=== PATIENT | female | born 1955 | race Caucasian/White ===

== ENCOUNTER 2016-05-31 10:17 | Observation (INO) | payer OTHER ==
[2016-05-31] VITALS (9 sets, daily range): BP systolic 142–163; BP diastolic 63–78; PULSE 66–84; RESP 18–20; TEMP 96.8–98.1; O2SAT 93–98
[~2016-05-31 10:17] MED LIST: ALBU6.7H INH; ASPI81TA82 PO; BENA25TA5 PO; DIPH2%T; DIPH2%T PO; DULE200A INH; EPIP0.3I IM; PRED50TA PO; RANI150 PO
[2016-05-31] MEDS ORDERED: DULE100A INH (12:56)
[2016-05-31 13:00] LABS: AUTOMATED NEUTROPHIL # 5.2 TH/MM3 (1.8-7.7); BASOPHIL # 0.1 TH/MM3 (0-0.2); BASOPHIL % 0.7 % (0.0-2.0); EOSINOPHIL # 0.1 TH/MM3 (0-0.4); HEMATOCRIT 38.6 % (35.0-46.0); HEMO FLAGS DIFF FINAL; LYMPH % 20.4 % (9.0-44.0); LYMPHOCYTE # 1.5 TH/MM3 (1.0-4.8); MEAN CELL VOLUME 85.1 FL (80.0-100.0); MEAN CORPUSCULAR HEMOGLOBIN 27.9 PG (27.0-34.0); MEAN CORPUSCULAR HGB CONC 32.8 % (32.0-36.0); MONO % 4.8 % (0.0-8.0); NEUT % 73.1 % (16.0-70.0); PLATELET COUNT 357 TH/MM3 (150-450); RED BLOOD COUNT 4.53 MIL/MM3 (4.00-5.30); RED CELL DISTRIBUTION WIDTH 14.5 % (11.6-17.2); WHITE BLOOD COUNT 7.3 TH/MM3 (4.0-11.0)
--- NOTE | 2016-05-31 13:01 | PD ---
HPI Chief Complaint: Chest Pain Time Seen by Provider: 10:17 Travel History International Travel<30 days: No Contact w/Intl Traveler<30days: No Traveled to known affect area: No History of Present Illness HPI Patient is a 61-year-old female who presents to emergency room with complaints of chest pain. Patient reports that she has been having increased chest pain for the past 2 weeks, reports that she has had chest pain in the past but does a lot of heavy lifting and thought that her chest pain was associated to a pulled muscle. Patient reports that she became concerned as her chest pain did not resolve after week, reports that she did go to urgent care center, she had an EKG performed there and was told to go to the emergency room as she had a concerning EKG. Patient reports that she did not follow-up and was not seen by a physician after she went to the urgent care center. Reports that she has been having increased chest pains over the past week and reports increased concerns from what the urgent care Center physician told her. Patient reports that she has been having increased pains under her right breast, reports that the pain is nonradiating in nature. Patient reports that the pain is intermittent in nature, reports that sometimes she has sharp stabbing pains, reports that sometimes she has pressure to her chest. Reports that when she has symptoms, they last a few minutes at a time and resolves on its own. Patient reports that she woke up this morning with chest pain, reports that it lasted for a few minutes and resolved shortly thereafter. Patient reports that nothing makes chest pain better, reports that sitting forward makes chest pain worse. Patient with no history of hypertension, hyperlipidemia, coronary disease. She reports a history of diabetes which she has been monitoring with a good diet. Unsure of family history as patient was adopted [facility] Past Medical History COPD: Yes Diabetes: Yes Patient Takes Glucophage: No Past Surgical History Other Surgery: Yes (ANKLE) Social History Alcohol Use: No Tobacco Use: No Substance Use: No Allergies-Medications (Allergen,Severity, Reaction): Coded Allergies: Enalapril (Verified Allergy, Unknown, 05/31/16) Guaifenesin (Verified Allergy, Unknown, 05/31/16) Metformin (Verified Allergy, Unknown, 05/31/16) Penicillin (Verified Allergy, Unknown, 05/31/16) Reported Meds & Prescriptions Reported Meds & Active Scripts Active Reported Dulera 120 Act Inh (Mometasone-Formoterol 120 Act Inh) 100-5 Mcg/Act Inh 2 Puff INH BID Review of Systems General / Constitutional: No: Fever Eyes: No: Visual changes HENT: No: Headaches Cardiovascular: Positive: Chest Pain or Discomfort Respiratory: No: Shortness of Breath Gastrointestinal: No: Abdominal Pain Genitourinary: No: Dysuria Musculoskeletal: No: Pain Skin: No Rash Neurologic: No: Weakness Psychiatric: No: Depression Endocrine: No: Polydipsia Hematologic/Lymphatic: No: Easy Bruising Physical Exam Narrative GENERAL: No acute distress, nontoxic SKIN: Warm and dry. HEAD: Atraumatic. Normocephalic. EYES: Pupils equal and round. No scleral icterus. No injection or drainage. ENT: No nasal bleeding or discharge. Mucous membranes pink and moist. NECK: Trachea midline. No JVD. CARDIOVASCULAR: Regular rate and rhythm. No murmur appreciated. RESPIRATORY: No accessory muscle use. Clear to auscultation. Breath sounds equal bilaterally. GASTROINTESTINAL: Abdomen soft, non-tender, nondistended. Hepatic and splenic margins not palpable. MUSCULOSKELETAL: No obvious deformities. No clubbing. No cyanosis. No edema. NEUROLOGICAL: Awake and alert. No obvious cranial nerve deficits. Motor grossly within normal limits. Normal speech. PSYCHIATRIC: Appropriate mood and affect; insight and judgment normal. Data Data Last Documented VS Vital Signs Date Time Temp Pulse Resp B/P Pulse Ox O2 Delivery O2 Flow Rate FiO2 05/31/16 13:59 73 18 150/63 95 05/31/16 12:51 98.1 Orders Complete Blood Count With Diff (05/31/16 12:50) Comprehensive Metabolic Panel (05/31/16 12:50) Creatine Kinase (Cpk) (05/31/16 12:50) Troponin I (05/31/16 12:50) B-Type Natriuretic Peptide (05/31/16 12:50) Prothrombin Time / Inr (Pt) (05/31/16 12:50) Act Partial Throm Time (Ptt) (05/31/16 12:50) D-Dimer (05/31/16 12:50) Electrocardiogram (05/31/16 ) Chest, Single Ap (05/31/16 ) Iv Access Insert/Monitor (05/31/16 12:50) Potassium Chloride (Kcl) (05/31/16 14:00) Place In Observation (05/31/16 14:54) Vital Signs (Adult) Q4H (05/31/16 14:54) Cardiac Rhythm .As Directed (05/31/16:54) ^ Notify Dr: Other .PRN (05/31/16 14:54) ^ Notify Dr. Parameters (05/31/16 14:54) Resp Oxygen Nasal Cannula (05/31/16 ) Diet Heart Healthy (05/31/16 Dinner) Ckmb (Isoenzyme) Profile (05/31/16 14:54) Ckmb (Isoenzyme) Profile (05/31/16:54) Troponin I (05/31/16:54) Troponin I (05/31/16:54) Magnesium (Mg) (05/31/16:54) Electrocardiogram (05/31/16:54) Electrocardiogram (05/31/16:54) ^ Obtain (05/31/16:54) Sodium Chloride 0.9% Flush (Ns Flush) (05/31/16 15:00) Sodium Chloride 0.9% Flush (Ns Flush) (05/31/16 21:00) Acetaminophen (Tylenol) (05/31/16 15:00) Acetamin-Hydrocod 325-7.5 Mg ([place] 7.5 (05/31/16 15:00) Morphine Inj (Morphine Inj) (05/31/16 15:00) Ondansetron Inj (Zofran Inj) (05/31/16 15:00) Pantoprazole (Protonix) (05/31/16 21:00) Nitroglycerin Sl (Nitrostat Sl) (05/31/16 15:00) Aspirin (Aspirin) (05/31/16 15:00) Staff Nurse / Telemetry HEBER.Q8H (05/31/16 14:54) Scd Bilateral/Knee High HEBER.BID (05/31/16 14:54) Nathan Bilateral/Knee High HEBER.QSHIFT (05/31/16 14:54) Admit Order (Ed Use Only) (05/31/16 15:01) Aspirin Chew (Aspirin Chew) (05/31/16 15:00) Labs Laboratory Tests Test 3/11/17 3/11/17 11:15 15:05 White Blood Count 7.3 TH/MM3 Red Blood Count 4.53 MIL/MM3 Hemoglobin 12.7 GM/DL Hematocrit 38.6 % Mean Corpuscular Volume 85.1 FL Mean Corpuscular Hemoglobin 27.9 PG Mean Corpuscular Hemoglobin 32.8 % Concent Red Cell Distribution Width 14.5 % Platelet Count 357 TH/MM3 Mean Platelet Volume 7.4 FL Neutrophils (%) (Auto) 73.1 % Lymphocytes (%) (Auto) 20.4 % Monocytes (%) (Auto) 4.8 % Eosinophils (%) (Auto) 1.0 % Basophils (%) (Auto) 0.7 % Neutrophils # (Auto) 5.2 TH/MM3 Lymphocytes # (Auto) 1.5 TH/MM3 Monocytes # (Auto) 0.4 TH/MM3 Eosinophils # (Auto) 0.1 TH/MM3 Basophils # (Auto) 0.1 TH/MM3 CBC Comment DIFF FINAL Differential Comment Prothrombin Time 10.8 SEC Prothromb Time International 1.0 RATIO Ratio Activated Partial 27.2 SEC Thromboplast Time D-Dimer Quantitative (PE/DVT) 0.40 MG/L FEU Sodium Level 145 MEQ/L Potassium Level 3.3 MEQ/L Chloride Level 108 MEQ/L Carbon Dioxide Level 27.6 MEQ/L Anion Gap 9 MEQ/L Blood Urea Nitrogen 10 MG/DL Creatinine 0.49 MG/DL Estimat Glomerular Filtration 128 ML/MIN Rate Random Glucose 101 MG/DL Calcium Level 8.8 MG/DL Total Bilirubin 1.2 MG/DL Aspartate Amino Transf 12 U/L (AST/SGOT) Alanine Aminotransferase 25 U/L (ALT/SGPT) Alkaline Phosphatase 77 U/L Total Creatine Kinase 97 U/L 89 U/L Troponin I LESS THAN 0.02 LESS THAN 0.02 NG/ML NG/ML B-Type Natriuretic Peptide 37 PG/ML Total Protein 6.9 GM/DL Albumin 3.4 GM/DL [facility] Medical Decision Making Medical Screen Exam Complete: Yes Emergency Medical Condition: Yes Interpretation(s) EKG at 1050: NSR at 78bpm, qt/qtc: 376/407, st seg depression V4-V6, II, III, aVF EKG from 05/25/2016: NSR at 63bpm, qt/qtc: 418/423, st seg depression, II, III , aVF, V4-V6 (this ekg was from urgent care) Vital Signs Date Time Temp Pulse Resp B/P Pulse Ox O2 Delivery O2 Flow Rate FiO2 05/31/16 12:51 98.1 84 20 157/78 94 Differential Diagnosis ACS, arrhythmia, electrolyte abnormality, PE, pneumothorax Narrative Course Patient is a 61-year-old female with history of diabetes, presents to emergency room with complaints of intermittent chest pain for the past 2 weeks. Patient reports that she has been having sharp and stabbing pains as well as a pressure to her right chest which lasts about a few minutes at a time and resolves on its own. Patient reports that she was seen at urgent care 1 week ago and was told that she had a concerning EKG and was told to go the emergency room, patient reports that she did not go to emergency room at that time but came to the ER today as she continued to have pain. Patient reports that she tried to follow-up with primary care doctor but she was unable to find one to follow-up with. Patient here for further evaluation of her chest pain. Patient currently with no chest pain at this time. EKG obtained upon presentation to the emergency room. Patient was placed on a cardiac technologist. Labs as well as x-ray of the chest ordered. Will give patient a baby aspirin at this time. Patient currently chest pain-free at this time. I did review all labs and all studies with patient detail. Plan to obs for chest pain Chest x-ray with no acute disease case reviewed with Dr. Garcia who accepts pt to chest pain center Diagnosis Primary Impression: Chest pain Qualified Code: R07.9 - Chest pain, unspecified type Admitting Information Admitting Physician Requests: Berenice Domínguez DO May 31, 2016 13:01
[2016-05-31 13:04] LABS: CHLORIDE 108 MEQ/L (98-107); POTASSIUM 3.3 MEQ/L (3.5-5.1); SODIUM (NA) 145 MEQ/L (136-145)
[2016-05-31 13:08] LABS: ANION GAP 9 MEQ/L (5-15); BICARBONATE 27.6 MEQ/L (21.0-32.0); BLOOD UREA NITROGEN 10 MG/DL (7-18)
[2016-05-31 13:11] LABS: ALT (GPT) 25 U/L (10-53); AST (GOT) 12 U/L (15-37); GLOMERULAR FILTRATION RATE 128 ML/MIN (>89)
[2016-05-31 13:12] LABS: TOTAL BILIRUBIN ADULT 1.2 MG/DL (0.2-1.0)
[2016-05-31 13:14] LABS: ALKALINE PHOSPHATASE 77 U/L (45-117); APTT (PATIENT) 27.2 SEC (24.3-30.1); PROTHROMBIN TIME - PATIENT 10.8 SEC (9.8-11.6)
[2016-05-31 13:33] LABS: CREATINE KINASE 97 U/L (26-192)
[2016-05-31] MEDS ORDERED: POTASSIUM CHLORIDE 10 MEQ CONTROLLED RELEASE TAB PO ONE (14:00)
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
[2016-05-31] MEDS ORDERED: ASPIRIN 325 MG TAB PO SCH (15:00)
[2016-05-31] MEDS ORDERED: ACETAMINOPHEN/HYDROcodone 325 MG/7.5 MG TAB PO PRN (15:00)
[2016-05-31] MEDS ORDERED: ASPIRIN 81 MG CHEW TAB PO ONE (15:00)
[2016-05-31] MEDS ORDERED: MORPHINE SULFATE 4 MG/ML INJ IV PRN (15:00)
[2016-05-31] MEDS ORDERED: NITROGLYCERIN 0.4 MG SL 25 TABS/BTL SL PRN (15:00)
[2016-05-31] MEDS ORDERED: ONDANSETRON HCL 4 MG/2 ML VIAL IV PRN (15:00)
[2016-05-31] MEDS ORDERED: ACETAMINOPHEN 500 MG CPLT PO PRN (15:00)
[2016-05-31] MEDS ORDERED: SODIUM CHLORIDE 0.9% FLUSH 5 ML FLUSH IVF PRN (15:00)
[2016-05-31 15:56] LABS: CREATINE KINASE 89 U/L (26-192)
--- NOTE | 2016-05-31 18:15 | RADHPO ---
EXAM DATE/TIME: 05/31/2016 11:40 CORRECTION Corrected on: May 31, 2016; Corrected header [facility] COMPARISON: No previous studies available for comparison. INDICATIONS : Chest pain off and on for two weeks. MEDICAL HISTORY : Chronic obstructive pulmonary disease. SURGICAL HISTORY : None. ENCOUNTER: Initial ACUITY: 2 weeks PAIN SCORE: 10/10 LOCATION: Bilateral chest FINDINGS: A single view of the chest demonstrates the lungs to be symmetrically aerated without evidence of mas s, infiltrate or effusion. The cardiomediastinal contours are unremarkable. Osseous structures are intact. CONCLUSION: No acute disease. Claudio Torres MD on May 31, 2016 at 11:49 Board Certified Radiologist. Board Certified Radiologist. This report was verified electronically.
[2016-05-31 19:16] LABS: MAGNESIUM 2.1 MG/DL (1.5-2.5)
[2016-05-31 19:25] LABS: CREATINE KINASE 77 U/L (26-192)
[2016-05-31] MEDS ORDERED: PANTOPRAZOLE SOD 40 MG DELAYED RELEASE TAB PO SCH (21:00)
[2016-05-31] MEDS: MOMETASONE FORMOTEROL INH SCH (21:00)
[2016-05-31] MEDS: SODIUM CHLORIDE 0.9% FLUSH 5 ML FLUSH IVF SCH (21:06)
[2016-06-01] VITALS: BP 116/71; PULSE 79; RESP 18; TEMP 97; O2SAT 96
[2016-06-01 04:00] VITALS: BP 125/69; PULSE 70; RESP 18; TEMP 97.2; O2SAT 98
[2016-06-01 08:00] VITALS: BP 149/86; PULSE 75; RESP 20; TEMP 97.1; O2SAT 95
[2016-06-01] MEDS: SODIUM CHLORIDE 0.9% FLUSH 5 ML FLUSH IVF SCH (08:27)
[2016-06-01] MEDS: MOMETASONE FORMOTEROL INH SCH (08:32)
--- NOTE | 2016-06-01 08:33 | HHI.PR ---
Subjective Remarks Follow-up for chest pain. Patient denies any recurrence of chest pain overnight. She states it no longer hurts when she leans forward. She denies any shortness of breath. States she hasn't been very hungry. Objective Vitals Vital Signs Date Time Temp Pulse Resp B/P Pulse Ox O2 Delivery O2 Flow Rate FiO2 06/01/16 04:00 97.2 70 18 125/69 98 06/01/16 00:00 97.0 79 18 116/71 96 05/31/16 20:00 96.8 66 18 163/75 98 05/31/16 20:00 68 05/31/16 19:48 93 21 05/31/16 18:31 67 05/31/16 18:00 94 21 05/31/16 17:30 98.0 66 20 142/74 96 05/31/16 15:37 67 20 162/69 97 05/31/16 13:59 73 18 150/63 95 05/31/16 12:59 70 20 158/76 95 05/31/16 12:51 98.1 84 20 157/78 94 I/O 05/31/16 05/31/16 05/31/16 06/01/16 06/01/16 06/01/16 07:00 15:00 23:00 07:00 15:00 23:00 Intake Total 240 ml 240 ml Balance 240 ml 240 ml Intake Oral 240 ml 240 ml # Voids 2 7 # Bowel Movements 0 1 Result Diagram: 05/31/16 1115 05/31/16 1115 Objective Remarks GENERAL: Well-nourished, well developed patient no apparent distress. SKIN: Warm and dry. HEAD: Atraumatic. Normocephalic. CARDIOVASCULAR: Regular rate and rhythm. No murmurs, gallops, or rubs. RESPIRATORY: No accessory muscle use. Clear to auscultation. Breath sounds equal bilaterally. GASTROINTESTINAL: Abdomen soft, non-tender, nondistended. MUSCULOSKELETAL: No lower extremity edema bilaterally. NEUROLOGICAL: Awake and alert. Motor grossly within normal limits.Normal speech. PSYCHIATRIC: Appropriate mood and affect; insight and judgment normal. Urinary Catheter: No Vascular Central Line Catheter: No A/P Problem List: (1) Atypical chest pain ICD Code: R07.89 Status: Acute (2) Hypokalemia ICD Code: E87.6 Status: Acute Assessment and Plan 61-year-old female with: Atypical chest pain: Improved. EKG from urgent care personally interpreted with ST depressions noted in inferior, anterior, and lateral leads. EKGs x [address] with [address]-T changes, but no progression. Troponin x 3 less than 0.02. D-dimer negative. CBC unremarkable. Chest x-ray without acute disease. -325 mg daily aspirin -Nitro/Argyle/morphine prn pain -Telemetry -Patient to undergo Lexiscan this morning. Hypokalemia: Mild 3.3. Mg normal. -Patient received 30 mEq by mouth KCl in the ED -Repeat am BMP with K+ 4.0. Diabetes: Diet-controlled. BGL 101 in the ED. COPD: stable. Continue home Dulera. GI prophylaxis: Protonix due to heavy aspirin use. DVT prevention: TEDs/SCDs. Myocardial perfusion scan negative for ischemia. EF greater than 70%. Discussed results with patient. Patient is advised to return if she develops chest heaviness. Discharge disposition: Home in good condition. Diet: Diabetic Activity: Regular Medications: Resume home medication. Follow-up: Patient has made an appointment with Dr. Do for 06/17/16. Charla Lund Jun 01, 2016 08:33
[2016-06-01] MEDS ORDERED: ASPIRIN 325 MG TAB PO SCH (09:00)
[2016-06-01 10:02] LABS: BICARBONATE 28.5 MEQ/L (21.0-32.0)
[2016-06-01] MEDS ORDERED: REGADENOSON INJ 0.4 MG/5 ML SYR IV ONE (10:41)
[2016-06-01 12:00] VITALS: BP 175/85; PULSE 71; RESP 20; TEMP 97.6; O2SAT 98
--- NOTE | 2016-06-01 12:46 | RADHPO ---
EXAM DATE/TIME: 06/01/2016 10:59 [facility] COMPARISON: No previous studies available for comparison. INDICATIONS : Chest pain under right breast for 2 weeks. Abnormal EKG. DOSE: 25.7 mCi Tc99m Myoview at stress. 8.3 mCi Tc99m Myoview at rest. 0.4 mg Lexiscan STRESS SYMPTOMS: Dizziness. EJECTION FRACTION: > 70% MEDICAL HISTORY : Chronic obstructive pulmonary disease. Hypertension. Diabetes mellitus type 2. SURGICAL HISTORY : None. ENCOUNTER: Initial ACUITY: 2 weeks PAIN SCALE: 6/10 LOCATION: Right chest TECHNIQUE: The patient underwent pharmacologic stress with infusion of prescribed dose. Continuous ECG tracing was monitored during stress. Gated SPECT imaging was performed after stress and conventional SPECT i maging was performed at rest. The examination was performed on a SPECT/CT scanner, both attenuation and non-corrected datasets were reviewed. FINDINGS: DISTRIBUTION: The maximum perfused segment at stress is in the anterolateral wall. PERFUSION STUDY: The pattern of perfusion at stress is within normal limits. GATED STUDY: There is intact wall motion and thickening without hypokinetic or dyskinetic segments. CONCLUSION: No areas of ischemia are seen. RISK CATEGORY: Low (<1% Annual Mortality Rate) Claudio Torres MD on June 01, 2016 at 12:44 Board Certified Radiologist. This report was verified electronically.
--- NOTE | 2016-06-01 13:34 | HHI.DCPOC ---
Discharge Care Plan Diagnosis: (1) Atypical chest pain (2) Hypokalemia Your Health Problems Are: Chest Pain Goals to Promote Your Health * To prevent worsening of your condition and complications * To maintain your health at the optimal level Directions to Meet Your Goals Take your medications as prescribed Follow your dietary instruction Follow activity as directed Keep your appointments as scheduled Take your immunizations and boosters as scheduled If your symptoms worsen call your PCP, if no PCP go to Urgent Care Center or Emergency Room Smoking is Dangerous to Your Health. Avoid second hand smoke Call the 24-hour hour crisis hotline for domestic abuse at Charla Lund Jun 01, 2016 13:34
--- NOTE | 2016-06-01 15:26 | EKG ---
Date Performed: 05/31/2016 Time Performed: 18:25:36 PTAGE: 61 years EKG: Sinus bradycardia Lateral T wave changes are nonspecific Borderline ECG PREVIOUS TRACING : 05/31/2016 16.55 Since previous tracing, no significant change noted DOCTOR: Lg Gentile Interpretating Date/Time 06/01/2016 15:24:52
--- NOTE | 2016-06-01 15:27 | EKG ---
Date Performed: 05/31/2016 Time Performed: 16:55:52 PTAGE: 61 years EKG: Sinus rhythm Possible anterior infarct - age undetermined Inferior/lateral ST-T changes are nonspecific Abnormal ECG PREVIOUS TRACING : 05/31/2016 10.50 Since previous tracing, no significant change noted DOCTOR: Lg Gentile Interpretating Date/Time 06/01/2016 15:26:33
--- NOTE | 2016-06-01 15:29 | EKG ---
Date Performed: 05/31/2016 Time Performed: 15:15:16 PTAGE: 61 years EKG: Sinus rhythm Extensive ST changes are nonspecific Borderline ECG PREVIOUS TRACING : 05/31/2016 10.50 Since previous tracing, no significant change noted DOCTOR: Lg Gentile Interpretating Date/Time 06/01/2016 15:27:37
--- NOTE | 2016-06-01 15:30 | EKG ---
Date Performed: 05/31/2016 Time Performed: 10:50:42 PTAGE: 61 years EKG: Sinus rhythm . Inferior ST changes are nonspecific Borderline ECG NO PREVIOUS TRACING DOCTOR: Lg Gentile Interpretating Date/Time 06/01/2016 15:29:12
--- NOTE | 2016-06-17 14:37 | TR ---
Date Performed: 06/01/2016 Time Performed: 11:02:54 DOCTOR: Oliva Martines DRUG LIST: CLINICAL HISTORY: REASON FOR TEST: Chest pain REASON FOR ENDING: OBSERVATION: CONCLUSION: Lexiscan stress test was performed under standard four minute protocol. Radionuclid e was injected one minute prior to ending the test. No electrocardiographic abormalities were present to suggest ischemia. Nuclear imaging and interpretation are pending. COMMENTS:
== END 2016-06-01 14:10 | disposition home or self-care (01) ==
LOC: PHED 10:17 → PHEDA 15:05 → MERGE 15:05 → PH3B 16:26
PROVIDERS: ADMIT Hospitalist; ATTEND Hospitalist
DX: R07.89 Other chest pain (principal); E87.6 Hypokalemia; J44.9 Chronic obstructive pulmonary disease, unspecified; E11.9 Type 2 diabetes mellitus without complications; Z88.0 Allergy status to penicillin; Z88.8 Allergy status to other drugs, medicaments and biological substances; Z87.891 Personal history of nicotine dependence; Z79.51 Long term (current) use of inhaled steroids
CPT/HCPCS: 71010; 78452; 80048; 80053; 82550; 83735; 83880; 84484; 85025; 85379; 85610; 85730; 93005; 93017; 99285; A9502; G0378; J2785